=== PATIENT | male | born 1940 | race Caucasian/White ===

== ENCOUNTER 2017-03-27 21:57 | Emergency (ER) | payer MEDICARE, OTHER ==
[~2017-03-27] VITALS: Ht 177.8 cm; Wt 97.0 kg
[~2017-03-27 21:57] MED LIST: ASPI81TA82 PO; BACT800T5 PO; CIPR0.3S LEFT EAR; FENO50TA PO; LIPI20TA PO; OMEP20TA39 PO; ZETI10TA5 PO
[2017-03-27 22:02] VITALS: BP 150/70; PULSE 88; RESP 16; TEMP 97.8; O2SAT 97
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
[2017-03-27] MEDS ORDERED: PRED20 PO (22:26)
[2017-03-27] MEDS ORDERED: CYCL1TAB29 PO (22:26)
[2017-03-27] MEDS ORDERED: ATEN50TA PO (22:29)
[2017-03-27] MEDS ORDERED: ASPI81CH CHEW (22:29)
[2017-03-27] MEDS ORDERED: FENO145T2 PO (22:29)
[2017-03-27] MEDS ORDERED: ATOR20TA15 PO (22:29)
[2017-03-27] MEDS ORDERED: OMEP20TA PO (22:29)
== END 2017-03-27 22:37 | disposition home or self-care (01) ==
LOC: PHEFT 21:57
DX: S46.912A Strain of unspecified muscle, fascia and tendon at shoulder and upper arm level, left arm, initial encounter (principal); M48.02 Spinal stenosis, cervical region; X50.9XXA Other and unspecified overexertion or strenuous movements or postures, initial encounter; Y93.89 Activity, other specified
CPT/HCPCS: 99284